=== PATIENT | male | born 1955 | race Caucasian/White ===

== ENCOUNTER 2023-10-04 16:01 | Observation (INO) | payer OTHER, SELFPAY ==
[2023-10-04 11:58] VITALS: BP 147/74
[2023-10-04 12:28] LABS: % Basophils 0.2 % (0-2); % Eosinophils 0.2 % (0-6); % Immature Granulocytes 0.4 % (0-0.5); % Lymphocytes 18.7 % (20.5-51.1); % Monocytes 5.5 % (1.7-9.3); Absolute Lymphocytes 0.9 10^3/uL (1.2-3.4); Absolute Monocytes 0.3 10^3/uL (0.1-0.6); Absolute Neutrophils 3.5 10^3/uL (1.4-6.5); Hematocrit 38.8 % (39.0-52.0); Hemoglobin 14.3 g/dL (13.0-18.0); Mean Corp Hgb Conc. 36.9 g/dL (33.0-37.0); Mean Corpuscular Hgb 31.7 pg (27.0-31.0); Nucleated Red Blood Cells % 0 % (-); Platelet Count 220 10^3/uL (130-400); Red Blood Cell Count 4.51 10^6/uL (4.70-6.10); White Blood Cell Count 4.7 10^3/uL (4.8-10.8)
[2023-10-04 12:41] LABS: INR 1.13; PT 14.7 Sec (11.4-14.6)
[2023-10-04 12:42] LABS: APTT 36.6 Sec (23.4-35.0)
[2023-10-04 12:57] LABS: ALT (SGPT) 20 U/L (0-50); AST (SGOT) 27 U/L (17-59); Albumin 4.4 g/dl (3.5-5.0); Alkaline Phosphatase 64 U/L (38-126); Blood Urea Nitrogen 30 mg/dl (9-20); Calcium 8.7 mg/dl (8.4-10.2); Carbon Dioxide 28 mmol/L (22-30); Chloride 102 mmol/L (98-107); Glucose 100 mg/dl (70-99); Potassium 4.1 mmol/L (3.5-5.1); Sodium 136 mmol/L (135-145); Total Bilirubin 1.2 mg/dl (0.2-1.3); Total Protein 6.9 g/dl (6.3-8.2); eGFR > 60.00
--- NOTE | 2023-10-04 13:18 | ED.GENMED ---
History of Present Illness
General
Chief Complaint: Abdominal Symptoms
Source: patient
Exam Limitations: none
Time Seen by Provider: 10/04/23 13:17
Nursing documentation reviewed up to this point in time: agreed with
Travel History
Have you had any contact with someone who has COVID-19?: No
Do you have any symptoms of coronavirus? Fever > 100 degrees, chills, cough, shortness of breath, sore throat, loss of taste or smell, muscle aches, or headache?: No
History of Present Illness
History of Present Illness:
Patient is a 68-year-old male who presents to the ER for evaluation. Patient reports starting at 5 PM last night he vomited multiple times black emesis. He had no pain at that time. He went to his family doctor today for evaluation and was sent
here. He does feel tired but denies any pain. He denies any vomiting today. He is not on blood thinners. He reports his stools are normal brown color.
No prior history of reflux.
Review of Systems
Review of Systems
Allergies reviewed?: Yes
All Other Systems: ROS reviewed and negative except as documented in HPI and ROS
Constitutional: Reports no symptoms and fatigue (pt feels tired today )
Respiratory: Reports no symptoms
ABD/GI: Reports vomiting (vomited black emesis ) and black stools; Denies abdominal pain or nausea
: Reports no symptoms
Musculoskeletal: Reports no symptoms
Skin: Reports no symptoms
Hematologic/Lymphatic: Reports no symptoms
Psychiatric: Reports no symptoms
Phy Exam
General Physical Exam
General Presentation: no apparent distress
General age: appears stated age
General Skin: warm and dry
General Habitus: normal
General Mental: alert
General Hydration: appears well hydrated
Gastrointestinal Exam
Gastrointestinal Exam: non tender, soft and other ((rectal done at PCP office ) )
Neurological Exam
Neurological Exam: alert and oriented x3
Musculoskeletal Exam
Musculoskeletal Exam: full ROM
Skin Exam
Skin Exam: normal color and warm/dry
Psychiatric Exam
Psychiatric Exam: normal mood/affect
Course
Orders/Labs/Results
Orders:
Orders
10/04/23 12:09
EKG [Electrocardiogram (*1)] Urgent
Reason for Study: Fatigue / Weakness
EKG- Treatment ONCE
10/04/23 12:18
Type+Screen Urgent
Complete Blood Count/With Diff Urgent
Comprehensive Metabolic Panel Urgent
PTT Urgent
Prothrombin Time Urgent
10/04/23 Dinner
NPO
Allow oral meds: Yes
Allow clear liquids: Sips of Clears
NPO with Ice Chips: No
10/04/23 15:12
Pantoprazole [Protonix IV] 40 mg IV NOW STA
10/04/23 15:14
IV Insert/Care/Rem.- Treatment PRN
10/04/23 15:15
Pantoprazole 200 mg/250 ml Nss [Protonix] 200 mg in 250 ml IV Q25H
10/04/23 15:17
Electrocardiogram (*1) Stat
Reason for Study: Other
Other Reason for Exam: chest pain
EKG- Treatment ONCE
10/04/23 15:56
Obstruct Series W/PA Chest [CR Obstruct Series W/pa Chest] Urgent
Comment:
Reason For Exam: hematemesis
10/04/23 16:01
Admit/Transfer Patient As Directed
Co-Sign Provider:
Level of Care: Observation services
Assign to:: Medical/Surgical
Physician / Group: ben french
Diagnosis: upper gi bleed
Code Status As Directed
Resuscitation Status: Full Code
10/04/23 16:06
GASTROINTESTINAL CONSULT Routine
Consulting Provider: Brian Cheng
Was physician already notified: Yes
Reason for consult: reported black emesis
Abnormal Lab Results
10/04/23
12:18
WBC 4.7 L 10^3/uL
(4.8-10.8)
RBC 4.51 L 10^6/uL
(4.70-6.10)
Hct 38.8 L %
(39.0-52.0)
MCH 31.7 H pg
(27.0-31.0)
Absolute Lymphs (auto) 0.9 L 10^3/uL
(1.2-3.4)
Lymphocytes % 18.7 L %
(20.5-51.1)
PT 14.7 H Sec
(11.4-14.6)
APTT 36.6 H Sec
(23.4-35.0)
BUN 30 H mg/dl
(9-20)
Glucose 100 H mg/dl
(70-99)
10/04/23 12:18
10/04/23 12:18
Vital Signs
Initial and Last Documented VS:
Initial Vital Signs
Temp Pulse Resp BP Pulse Ox
98.0 F 77 18 147/74 98
10/04/23 11:58 10/04/23 11:58 10/04/23 11:58 10/04/23 11:58 10/04/23 11:58
Last Documented Vital Signs
Temp Pulse Resp BP Pulse Ox
98.0 F 77 18 147/74 98
10/04/23 11:58 10/04/23 11:58 10/04/23 11:58 10/04/23 11:58 10/04/23 11:58
Drupal Developer consulted with Physician
Drupal Developer consulted with physician?: Yes
Name of Physician Consulted: Alex
MDM/Problems Addressed
Differential Diagnosis Includes:
not limited to : GI bleed, anemia
MDM/Problems Addressed:
Patient is a 68-year-old male with no Past medical history no blood thinners presents to the ER for evaluation of vomiting. Patient vomited multiple times yesterday black emesis. He went to PCPs office for exam. They did a rectal exam which was
negative and asked patient sent him here for evaluation. Patient's hemoglobin is stable at 14.3 BUN however is elevated at 30.
Abdomen soft nontender. Case reviewed with GI who does recommend admission for EGD. Protonix ordered
*Pulse Oximetry
Patient hypoxic: no
*Critical Care Note
Total Time (30-74mins, 75-104mins- exclusive of procedures): Not Applicable
Patient Management
Discussion with other providers: Arts Administrator Or Manager (Dr Brian Cheng of GI )
ED Attending Note
-
Portions of this chart may have been created with voice recognition software.� Occasional wrong word or��sound alike� substitutions may have occurred due to the inherent limitations of voice recognition software.
Discharge Plan
Departure
Patient Disposition: Admit
Date of Disposition: 10/04/23
Time of Disposition: 16:26
Admit to: Med/Surg
Admit to doctor: hospitalist
Presentation/result/management discussed w/ accepting MD/DO: Hospitalist
Patient with high blood pressure during this ER visit?: Yes
Condition: Fair
Covid-19: Not Applicable
Discharge Problem:
Acute GI bleeding
Prescriptions:
No Action
No Current Medications
0
Referrals:
Lizzy Matta MD [Family Provider] -
Interventions
Interventions:
*Risk Screen - Suicide Last Done: 10/04/23 12:06
*General Assessment Last Done: 10/04/23 12:06
*Neglect/Abuse Screening Last Done: 10/04/23 12:06
[2023-10-04 14:00] VITALS: BP 139/88
--- NOTE | 2023-10-04 15:45 | HPS.HSE ---
Addendum entered and electronically signed by Kiran Baron MD 10/05/23 13:33:
I independently saw and examined the patient on October 04, 2023.
The MOE's note was reviewed and I agree with the note.
Comment:
68-year-old male with no past medical history presented with reports of vomiting 6 times black emesis the night before presentation, starting around 5 pm. He was seen by his family doctor on the day of presentation and subsequently sent to emergency
room for evaluation, he reported his stools are brown in color, and his primary care provider did a rectal exam which was heme negative. He denies any medication use, no use of NSAIDs or steroids. Patient reported drinking 3 glasses of wine on the
weekend and occasionally taking an antacid if his reflux became worse. Patient has not had an hematemesis in the past and denied any history of any gastrointestinal disease.
Vital Signs
AFVSS
Physical Exam
General: No Apparent Distress
HEENT: Normocephalic
Respiratory: Clear to Auscultation Bilaterally
Cardiac: S1/S2 and Regular Rhythm
GI: Soft, Non Tender, Non Distended, Normal Bowel Sounds
Musculoskeletal: No Cyanosis and No Edema
Skin: Warm and Dry
Neuro: AAO x 3, Nonfocal/grossly intact
Psych: Calm
Assessment/Plan
Coffee-ground emesis
-Type and screen
-IV PPI gtt
-Check obstruction series
-N.p.o. after midnight for EGD
-consult GI, recommendations appreciated
DVT prophylaxis
SCDs
Full Code
Original Note:
Family Physician
<MOE Rios - Last Filed: 10/05/23 12:15>
-
Family Physician: Lizzy Matta
Chief Complaint
<MOE Rios - Last Filed: 10/05/23 12:15>
History of Present Illness
68-year-old male complaining of vomiting 6 times black emesis last night starting at 5 PM. He denies any abdominal pain or vomiting today. He was seen by his family doctor today and sent to ER for evaluation he reports his stools are brown in
color his PCP did a rectal exam which was heme negative. He denies any medication use, no NSAIDs no steroids. He does drink 3 glasses of wine on the weekend and occasionally takes an antacid if his reflux acts up. The patient denies current
reflux, fever, chills, chest pain, palpitations, shortness of breath, cough, abdominal pain, nausea, diarrhea, urinary symptoms. No PMH
<Kiran Baron MD - Last Filed: 10/05/23 13:20>
-
Dark-colored vomiting
Medical History
<MOE Rios - Last Filed: 10/05/23 12:15>
Past Medical History
Past Medical History: Reports None
Past Surgical History: Reports Other (Colonoscopy 2017 patient reports normal)
Social History
Tobacco: Non-smoker
Alcohol: Occasional (3 glasses of wine on weekends)
Drug: None
Personal:
Living: With Family ()
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
Family History
Family History: Other (Father diverticulitis, father during surgery, mother CAD)
Allergies / Home Medications
Allergies reflects when Allergies were last updated in [employer].
Home Medications with original date entered in [employer]
Allergy/Medication List:
Allergies
Allergy/AdvReac Type Severity Reaction Status Date / Time
No Known Allergies Allergy Unverified 10/04/23 12:05
Home Medications
No Meds [No Current Medications] 10/04/23
Review of Systems
<MOE Rios - Last Filed: 10/05/23 12:15>
-
History Source: Patient
A 12 point ROS was completed and negative except as noted: Yes
Constitutional: Denies Fever, Weight Gain, Weight Loss, Fatigue or Chills
EENT: Denies Sore Throat or Runny Nose
Respiratory: Denies Cough or Trouble Breathing
Cardiac: Denies Chest Pain, Diaphoresis, Palpitations or Syncope
Abdomen/GI: Reports Vomiting (Coffee grind x 6); Denies Abdominal Pain, Nausea, Diarrhea, Constipated, Bloody Stools or Black Stools
: Denies Dysuria, Frequency, Flank Pain, Incontinence, Difficulty Voiding or Urgency
Musculoskeletal: Denies Joint Pain or Edema
Skin: Denies Itching or Rash
Neurological: Denies Dizzy, Headache or Weakness
Endocrine: Reports No Symptoms
Hematologic/Lymphatic: Reports No Symptoms
Psych: Reports Calm
Physical Exam
<MOE Rios - Last Filed: 10/05/23 12:15>
Vital Signs
Vital Signs
Temp Pulse Resp BP Pulse Ox
98.0 F 77 18 147/74 98
10/04/23 11:58 10/04/23 11:58 10/04/23 11:58 10/04/23 11:58 10/04/23 11:58
Physical Exam
General: No Apparent Distress, Comfortable and Conversant; No Pain, Fever or Chills
HEENT: NormoCephalic, Anicteric, PERRLA, [place] Conjunctivae and No Ptosis
Respiratory: Clear; No Wheezes, Rales or Rhonchi
Cardiac: S1/S2 and Regular Rhythm; No Murmur, Rub, Gallop or Peripheral Edema
GI: Soft, Non Tender, Non Distended, Normal Bowel Sounds and No Hepatosplenomegaly
Rectal: Deferred by Provider
Genito-urinary: Deferred by me
Musculoskeletal: No Clubbing, No Cyanosis and No Edema
Skin: Warm and Dry; No Rash or Jaundice
Neuro: AO x 3, No Motor Deficits, Nonfocal/grossly intact, Cranial Nerves Intact and No Sensory Deficits; No Slurred Speech, Facial Droop or Tremors
Psych: Calm
Laboratory Results
<MOE Rios - Last Filed: 10/05/23 12:15>
-
10/04/23 12:18
10/04/23 12:18
Laboratory Results
PT 14.7 Sec (11.4-14.6) H 10/04/23 12:18
INR 1.13 10/04/23 12:18
APTT 36.6 Sec (23.4-35.0) H 10/04/23 12:18
Total Bilirubin 1.2 mg/dl (0.2-1.3) 10/04/23 12:18
AST 27 U/L (17-59) 10/04/23 12:18
ALT 20 U/L (0-50) 10/04/23 12:18
Alkaline Phosphatase 64 U/L (38-126) 10/04/23 12:18
Data Reviewed
<MOE Rios - Last Filed: 10/05/23 12:15>
-
Lab Data: Labs Reviewed by me
Impression/Plan
<MOE Rios - Last Filed: 10/05/23 12:15>
-
Impression/plan:
Observation MedSurg
Reported black emesis concern for gastritis versus gastric ulcer
Hgb stable 14.3
-Type and screen
-IV PPI gtt
-Check obstruction series
-N.p.o. after midnight for EGD in a.m
-consult GI
DVT prophylaxis
SCDs
Full code.
<Kiran Baron MD - Last Filed: 10/05/23 13:20>
-
Impression/plan:
Observation MedSurg
Reported black emesis concern for gastritis versus gastric ulcer
Hgb stable 14.3
-Type and screen
-IV PPI gtt
-Check obstruction series
-N.p.o. after midnight for EGD in a.m
DVT prophylaxis
SCDs
Full code.
--- NOTE | 2023-10-04 15:53 | CON.GI ---
Addendum entered and electronically signed by Brian Cheng MD 10/04/23 19:38:
I saw and examined the patient.
The PA's note was reviewed and I agree with the note.
Comment:
Pt is a 68 year old male w/ no medical hx p/w multiple episodes of coffee ground emesis. Initially vomited food but quickly followed with coffee ground. Denies NSAID use, social alcohol, never had EGD. Hgb normal but elevated BUN. Will plan for
EGD tomorrow to exclude UGIB.
Original Note:
Consultation
-
Date/Time Consultation Requested: 10/04/23 1500
Date/Time Consultation Performed: 10/04/23 1600
Requesting Provider: MOE Mata
Performing Provider: MOE Paredes, Brian Cheng MD
Reason for Consultation: vomiting coffee ground
Medical History
Chief Complaint / HPI
Chief Complaint: coffee ground emesis
History of Present Illness:
Pt is a 68yo presents with no past medical problems with onset of vomiting last PM with about 6 episode of vomiting coffee ground material with last episode about 1 cup of emesis. Pt admit to GERD with rare antacid use but denies pepto bismol or
NSAID use. No hx EGD in past. Last colonoscopy 2017 normal. Hx social ETOH about 3 glasses of wine with dinner on weekends.
Pt admits to occasional GERD and constipation with nausea prior to admission but denies dysphagia, abdominal pain, distention, wt loss, diarrhea blood or black in stools. Pt reports he had rectal exam with PCP prior to admission that was
negative. Yearly labs that have been stable prior to admission. labs on admission with hbg 14.3 with BUN 30.
Past Medical History
Past Medical History: None
Past Surgical History: None
Social History
Tobacco: Non-Smoker
Alcohol: Occasional (3 glasses of wine with dinner on weekends )
Drug: None
Personal:
Living: With Family
Employment: Employed
Family History
Family History: Other (no family hx colon CA or polyps )
Allergies / Home Medications
Allergy/AdvReac Type Severity Reaction Status Date / Time
No Known Allergies Allergy Unverified 10/04/23 12:05
Medication Instructions Recorded
No Meds [No Current Medications] 10/04/23
Review of Systems
-
History Source: Patient
Constitutional: Reports No Symptoms
EENT: Reports No Symptoms
Respiratory: Reports No Symptoms
Abdomen/GI: Reports Nausea and Vomiting (coffee ground emesis )
: Reports No Symptoms
Musculoskeletal: Reports No Symptoms
Skin: Reports No Symptoms
Neurological: Reports No Symptoms
Endocrine: Reports No Symptoms
Hematologic/Lymphatic: Reports No Symptoms
Vital Signs
Temp Pulse Resp BP Pulse Ox
98.0 F 77 18 147/74 98
10/04/23 11:58 10/04/23 11:58 10/04/23 11:58 10/04/23 11:58 10/04/23 11:58
Physical Exam
Exam
General: Well Developed, Well Nourished and No Apparent Distress
HEENT: Normocephalic and Anicteric
Respiratory: Clear
Cardiac: Regular Rhythm
GI: Soft, Non Tender and Non Distended
Rectal: Other (pt reports neg with PCP office )
Musculoskeletal: No Clubbing and No Cyanosis
Skin: Warm and Dry
Neuro: Awake, Alert and AO x 3
Psych: Calm
Results
WBC 4.7 10^3/uL (4.8-10.8) L 10/04/23 12:18
Hgb 14.3 g/dL (13.0-18.0) 10/04/23 12:18
Hct 38.8 % (39.0-52.0) L 10/04/23 12:18
MCV 86.0 fL (80.0-94.0) 10/04/23 12:18
Plt Count 220 10^3/uL (130-400) 10/04/23 12:18
Absolute Neuts (auto) 3.5 10^3/uL (1.4-6.5) 10/04/23 12:18
PT 14.7 Sec (11.4-14.6) H 10/04/23 12:18
INR 1.13 10/04/23 12:18
APTT 36.6 Sec (23.4-35.0) H 10/04/23 12:18
Sodium 136 mmol/L (135-145) 10/04/23 12:18
Potassium 4.1 mmol/L (3.5-5.1) 10/04/23 12:18
Chloride 102 mmol/L (98-107) 10/04/23 12:18
Carbon Dioxide 28 mmol/L (22-30) 10/04/23 12:18
BUN 30 mg/dl (9-20) H 10/04/23 12:18
Creatinine 1.0 mg/dL (0.7-1.3) 10/04/23 12:18
Calcium 8.7 mg/dl (8.4-10.2) 10/04/23 12:18
Total Bilirubin 1.2 mg/dl (0.2-1.3) 10/04/23 12:18
AST 27 U/L (17-59) 10/04/23 12:18
ALT 20 U/L (0-50) 10/04/23 12:18
Alkaline Phosphatase 64 U/L (38-126) 10/04/23 12:18
Diagnostic Image Results:
10/04 obstruction series neg
Prior GI Procedures:
EGD: none
Colonoscopy: [facility] 2017 normal.
Assessment / Plan
-
Pt is a 68yo presents with no past medical problems with onset of vomiting last PM with about 6 episode of vomiting coffee ground material with last episode about 1 cup of emesis. Pt admit to GERD with rare antacid use but denies pepto bismol or
NSAID use. No hx EGD in past. Last colonoscopy 2017 normal. Hx social ETOH about 3 glasses of wine with dinner on weekends. Pt admits to occasional GERD, constipation and nausea prior to admission. Pt reports he had rectal exam with PCP prior
to admission that was negative. Yearly labs that have been stable prior to admission. labs on admission with hbg 14.3 with BUN 30.
-coffee ground emesis
-rare GERD
-occasional ETOH use
-occasional constipation
PLAN:
etiology of coffee ground emesis related to gastritis, HH with brenda lesions, PUD(no hx NSAID use), constipation related vs other
hx occasional ETOH use with normal INR, platelets, albumin, LFT's less likely underlying liver disease
agree with check obstruction series
ok for clears
NPO in am and plan for EGD in AM
trend hbg and BUN
PPI gtt
will follow
-
-
Thank you for consultation and allowing me to participate in the patient's care. Please call the front desk person GI physician during the after hours with any questions or concerns.
[2023-10-04 16:00] VITALS: BP 139/85
[2023-10-04] MEDS: PROTONIX IV 40 MG IV (16:37)
[2023-10-04] MEDS: PROTONIX 250 IV (16:37)
[2023-10-04 16:40] VITALS: BMI 25.1
[2023-10-04 18:00] VITALS: BP 128/78
[2023-10-04 18:34] VITALS: BP 129/86
[2023-10-04 23:25] VITALS: BP 124/69
[2023-10-05 07:16] LABS: % Eosinophils 1.3 % (0-6); % Immature Granulocytes 0.8 % (0-0.5); % Lymphocytes 33.3 % (20.5-51.1); % Monocytes 11.3 % (1.7-9.3); % Neutrophils 53.3 % (42.2-75.2); Absolute Eosinophils 0.1 10^3/uL (0-0.7); Absolute Lymphocytes 1.2 10^3/uL (1.2-3.4); Absolute Monocytes 0.4 10^3/uL (0.1-0.6); Hematocrit 35.7 % (39.0-52.0); Hemoglobin 12.8 g/dL (13.0-18.0); Mean Corp Hgb Conc. 35.9 g/dL (33.0-37.0); Mean Corpuscular Volume 86.4 fL (80.0-94.0); Mean Platelet Volume 10.1 fL (7.4-10.4); Nucleated Red Blood Cells % 0 % (-); Platelet Count 186 10^3/uL (130-400); Red Blood Cell Count 4.13 10^6/uL (4.70-6.10); White Blood Cell Count 3.7 10^3/uL (4.8-10.8)
[2023-10-05 07:23] LABS: Blood Urea Nitrogen 31 mg/dl (9-20); Calcium 8.6 mg/dl (8.4-10.2); Carbon Dioxide 24 mmol/L (22-30); Chloride 104 mmol/L (98-107); Estimated Creatinine Clearance 67 ml/min; Glucose 79 mg/dl (70-99); Sodium 139 mmol/L (135-145); eGFR > 60.00
[2023-10-05 07:30] VITALS: BP 107/64
[2023-10-05 08:05] LABS: Hepatitis C Antibody Negative (Negative)
[2023-10-05 08:38] LABS: Potassium 3.7 mmol/L (3.5-5.1)
--- NOTE | 2023-10-05 12:50 | W.PN.UPDATE ---
Update Note
Progress Note Update
s/p EGD
- No gross lesions in the entire esophagus.
- Z-line variable, 40 cm from the incisors.
- Small hiatal hernia.
- No gross lesions in the entire stomach. No evidence of old or fresh blood noted in the stomach.
- A large non-bleeding diverticulum was found in the second portion of the duodenum. Normal mucosa until the 2nd portion, bile noted.
- No specimens collected.
Plan
- Follow an antireflux regimen.
- No source of UGI bleeding found.
- Cannot r/o laci wewiss tear.
- Use Protonix (pantoprazole) 40 mg PO daily for 6 weeks.
- No ibuprofen, naproxen, or other non-steroidal anti-inflammatory drugs.
[2023-10-05 12:52] VITALS: BP 93/55
[2023-10-05 13:00] VITALS: BP 107/62
[2023-10-05 13:07] VITALS: BP 119/69
[2023-10-05 13:15] VITALS: BP 117/65
[2023-10-05 13:23] VITALS: BP 125/71
--- NOTE | 2023-10-05 14:02 | W.PN.HOSP.TC ---
Today's Communication/Plan
-
Discharge today
Assessment / Plan
Assessment / Plan
Physical Exam
General: No Apparent Distress
HEENT: Normocephalic
Respiratory: Clear to Auscultation Bilaterally
Cardiac: S1/S2 and Regular Rhythm
GI: Soft, Non Tender, Non Distended, Normal Bowel Sounds
Musculoskeletal: No Cyanosis and No Edema
Skin: Warm and Dry
Neuro: AAO x 3, Nonfocal/grossly intact
Psych: Calm
Assessment/Plan
Coffee-ground emesis, possibly from Resolved Jamia-Harmon Tear
Small hiatal hernia on upper endoscopy (on 10/05/23 in [facility])
Large non-bleeding diverticulum in the second portion of the duodenum on upper endoscopy (on 10/05/23 in [facility])
-Protonix (Pantoprazole) 40 mg PO daily for 6 weeks
-AVOID ibuprofen, naproxen, or other non-steroidal anti-inflammatory drugs.
-Obstruction series x-ray showed, as per radiologist: 'Nonobstructive bowel gas pattern.'
-No source of upper gastrointestinal bleeding on upper endoscopy
-Consulted GI, recommendations appreciated
DVT prophylaxis
SCDs
Full Code
More than 30 minutes spent in discharge including
Final examination of the patient
Summarizing hospital stay
Instructions for continuing care to all relevant caregivers
Preparation of discharge records, prescriptions, and referral forms
Total time spent (in minutes): 42
Anticipated Discharge: Today
Subjective/Interval History
-
Date of Service: October 05, 2023
Patient was seen and examined. He reported that he had a normal bowel movement this morning and denied any abdominal pain or vomiting.
Objective Data
-
Labs:
Laboratory Results
10/05/23
06:47
WBC 3.7 L
Hgb 12.8 L
Hct 35.7 L
Plt Count 186
Sodium 139
Potassium 3.7
Chloride 104
Carbon Dioxide 24
BUN 31 H
Creatinine 1.0
Glucose 79
Calcium 8.6
Vital Signs:
Vital Signs
Temp Pulse Resp BP Pulse Ox
99.1 F 57 13 125/71 96
10/05/23 13:23 10/05/23 13:23 10/05/23 13:23 10/05/23 13:23 10/05/23 13:23
--- NOTE | 2023-10-05 15:07 | W.DS.TRANS ---
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
-
Discharge Instructions:
Discharge Diagnosis/Procedures Coffee-ground emesis, possibly from Resolved
Jamia-Harmon Tear
Small hiatal hernia on upper endoscopy (on 10/05
in [facility])
Large non-bleeding diverticulum in the second
portion of the duodenum on upper endoscopy (on
10/05/23 in [facility])
Diet Low Residue
Activity As tolerated
Instructions: Gastrointestinal Bleeding
Gastrointestinal Bleeding (DC)
Stand-Alone Forms:
Changes to Home Medications: Yes
Discharge Medications:
DC Medications w/original date entered in [employer]
pantoprazole 40 mg tablet,delayed release 40 mg PO DAILY 6 weeks #42 tabs 10/05/23
Home Medication Changes
Pantoprazole is a new medication
Pending Results: No
Total time spent discharging patient (in min): 42
--- NOTE | 2023-10-05 16:08 | CM ---
manager systems reviewed patient's chart and met with patient and patient lives with his spouse in a 2 story home, patient is independent with adl's and ambulation, no dme, patient drives, patient has a prescription plan and patient uses [facility].
Patient is OBS patient and OBS form completed
PCP: Dr Matta
Plan; Home no needs.
--- NOTE | 2023-10-07 18:02 | W.DCSUMMARY ---
Discharge Summary
Discharge Data
Date of Admission: 10/04/23
Date of Discharge: 10/05/23
Total time spent discharging patient (in min): 42
-
Pending Results: No
Hospital Course
68 y/o male with no past medical history presented with reports of vomiting 6 times black emesis the night before presentation, starting around 5 pm. He was seen by his family doctor on the day of presentation and subsequently sent to emergency room
for evaluation, he reported his stools were brown in color, and his primary care provider did a rectal exam which was heme negative. He denied any medication use, no use of NSAIDs or steroids. Patient reported drinking 3 glasses of wine on the
weekend and occasionally taking an antacid if his reflux became worse. Patient had not had an hematemesis in the past and denied any history of any gastrointestinal disease.
Patient was placed on Protonix drip, made to be nothing by mouth, and gastroenterology was consulted. Upper endoscopy was performed on 10/05/23 and showed, as per gastroenterology note/report: 'No gross lesions in the entire esophagus. Z-line
variable, 40 cm from the incisors. Small hiatal hernia. No gross lesions in the entire stomach. No evidence of old or fresh blood noted in the stomach. A large non-bleeding diverticulum was found in the second portion of the duodenum. Normal mucosa
until the 2nd portion, bile noted. No specimens collected.' The plan was for patient to continue Protonix 40 mg PO daily for 6 weeks, and to avoid ibuprofen, naproxen, or other non-steroidal anti-inflammatory drugs. Source of bleeding was possibly a
Jamia Harmon Tear.
Discharge Plan
-
Patient Disposition: Home (Routine Discharge)
Discharge Diagnosis/Procedures: Coffee-ground emesis, possibly from Resolved Jamia-Harmon Tear
Small hiatal hernia on upper endoscopy (on 10/05/23 in [facility])
Large non-bleeding diverticulum in the second portion of the duodenum on upper endoscopy (on 10/05/23 in [facility])
Condition: Good
Diet: Low Residue
Activity: As tolerated
Blood Work: Please have your lab-work (CBC and BMP) checked with your primary care physician in 1 to 2 days
Activity Restrictions/Additional Instructions:
AVOID ibuprofen, naproxen, or other non-steroidal anti-inflammatory drugs
Instructions: Gastrointestinal Bleeding, Gastrointestinal Bleeding (DC)
Referrals:
Lizzy Matta MD [Family Provider] - in three to four days
Prescriptions:
New
pantoprazole 40 mg tablet,delayed release (DR/EC)
40 mg PO DAILY 42 Days Qty: 42 0RF
Discharge Orders:
Discharge Patient (As Directed); Ordered 10/05/23
Ordered By: Kiran Baron
Discharge Date and Time
Discharge Date/Time: 10/05/23 16:20
== END 2023-10-05 16:20 | disposition home or self-care (01) ==
LOC: 4 WEST ACU 16:01
PROVIDERS: Clinical Nurse Specialist Family Health; Student in an Organized Health Care Education/Training Program; ADMITTING PHYSICIAN Hospitalist; CONSULT PHYSICIAN Internal Medicine Gastroenterology; EMERGENCY PHYSICIAN Emergency Medicine; FAMILY PHYSICIAN Pediatrics
DX: K92.0 Hematemesis (principal); R10.9 Unspecified abdominal pain; R53.1 Weakness; R53.83 Other fatigue; K21.9 Gastro-esophageal reflux disease without esophagitis; K44.9 Diaphragmatic hernia without obstruction or gangrene; K57.10 Diverticulosis of small intestine without perforation or abscess without bleeding
CPT/HCPCS: 43235; 74022; 80048; 80053; 85025; 85610; 85730; 86803; 86850; 86900; 86901; 93005; 97161; 99285; G0378